=== PATIENT | male | born 1955 | race Caucasian/White ===

== ENCOUNTER 2018-04-05 18:57 | Inpatient (IN) ==
[2018-04-05] MEDS ORDERED: Sod Chloride 0.9% Inj 1,000 ML IV.SIG ONE (19:55)
[2018-04-05] MEDS ORDERED: fentaNYL Citrate Inj 100 MCG/2 ML Ampul IV.PUSH ONE (19:56)
--- NOTE | 2018-04-05 20:00 | ED ---
HPI General Chief Complaint: Trauma Stated Complaint: Transfer Time Seen by Provider: 04/05/18 19:48 Source: patient Limitations: no limitations History of Present Illness HPI narrative: The patient is a 62 year old male who presents to the [facility] emergency department with a history of doing housework at a beach house of a friends prior to arrival when he fell 10 feet onto a concrete slab. The patient reports that this occurred around noon. The patient was transported to another facility for initial evaluation and stabilization. The patient reports that he was up on the front of a front end fructose loader that was raised 10 feet off the ground. The person working the front end fructose loader then backed up while he was still on it 10 feet in the air. He reports that a friend was also up on the front and of the vehicle at the time and both fell to the ground. He reports that his friend landed on top of him. He reports that he has bilateral hand pain and had dislocations of the third and fourth digit of the left hand. The patient had his fingers relocated prior to arrival, however he has no splints in place. The patient had a scalp laceration that has been repaired. The patient was diagnosed with a T2, T6, T8, T9 fracture and an 11th rib fracture prior to arrival. The patient was accepted in transfer to this facility for care under the trauma service and Dr. Whitlock. The patient arrives awake and alert. The patient reports having a headache, bilateral hand pain, and back pain. He denies having any numbness or tingling to the extremities, or weakness of his extremities. Related Data Home Medications Medication Instructions Recorded Confirmed No Known Home Medications 04/05/18 04/05/18 Allergies Allergy/AdvReac Type Severity Reaction Status Date / Time No Known Allergies Allergy Verified 04/05/18 19:27 Review of Systems ROS: all other systems reviewed are negative PMFSH History History Provided By: Patient Medical History Medical History Patient denies medical problems (Acute) Surgical History Surgical History H/O exploratory laparotomy (Acute) Social History Social History Substance History: No History of Abuse Second Hand Smoke Exposure: No Smoking Status: Former smoker How Often Do You Have a Drink Containing Alcohol: 2 to 4 times a month Recent Travel in [facility] within the Last 8 Weeks: No Recent Out of Country Travel within the Last 8 Weeks: No Exam Narrative Exam Narrative: General: The patient is a well-developed well-nourished male in no acute distress. Head and Neck exam: Head is normocephalic, evidence of trauma with hair matted with blood, laceration status post repair along the occipital scalp. Eyes: EOMI, pupils are equal round and reactive to light. Nose: Midline septum with pink mucous membranes Mouth: Dentition unremarkable. Moist mucus membranes. Posterior oropharynx is not erythematous. No tonsillar hypertrophy. Uvula midline. Airway patent. Neck: No palpable lymphadenopathy. No nuchal rigidity. No thyromegaly. No spinous process tenderness to palpation. No step-off or crepitus. No erythema or ecchymosis. Cardiovascular: Regular rate and rhythm without murmurs, gallops, or rubs. No pulse deficit to the extremities on simultaneous auscultation and palpation of his radial artery. Lungs: Clear to auscultation bilaterally. No wheezes, rhonchi, or rales. Abdomen: Soft, without tenderness to palpation in all 4 quadrants of the abdomen. No guarding, rebound, or rigidity. Normal bowel sounds are audible. Negative Gilliland's sign. Extremities: No clubbing, cyanosis, or edema. 2+ pulses in all 4 extremities. The patient reports having bilateral hand pain, however he has full range of motion of his hands without crepitus or deformity. He reports that his left hand, third and fourth digit were dislocated status post relocation in the other emergency department. The patient has bruising noted to bilateral hands. No significant erythema or edema. Back: Patient reports spinous process tenderness to palpation along the thoracic spine in multiple locations, paraspinal muscle tenderness on palpation of the thoracic spine and lumbar spine bilaterally. No step-off or crepitus. No costovertebral angle tenderness to palpation. Neurologic Exam: Cranial nerves 2-12 were intact on exam. Strength is 5/5 in all 4 extremities. No sensory deficits noted. Skin Exam: No rash noted. Intact skin that is warm and dry. Course Consultations Consultation #1: The patient's case including history, pertinent physical examination findings, and laboratory studies were discussed with Dr. Whitlock. It was agreed that the patient would be admitted to the trauma service. He recommended that the patient have a Smith catheter placed to gravity due to his gross hematuria. He recommended that the patient have a repeat CT scan of the chest, abdomen and pelvis with IV contrast at this time. He agreed with a repeat CBC. He recommended that the patient received normal saline 1 L IV fluid bolus. He will come in and evaluate the patient in person in the emergency department shortly. Initial Documented Vital Signs Temperature 97.8 F 04/05/18 19:32 Pulse Rate 74 04/05/18 19:32 Respiratory Rate 18 04/05/18:32 Blood Pressure 126/65 04/05/18:32 Pulse Oximetry 95 04/05/18:32 Last Documented Vital Signs Temperature 99.2 F 04/06/18 00:00 Pulse Rate 66 04/06/18 00:00 Respiratory Rate 20 04/06/18 00:00 Blood Pressure 103/76 04/06/18 00:00 Pulse Oximetry 94 L 04/06/18 00:00 Medical Decision Making MDM Narrative Medical decision making narrative: During the course of the patient's emergency department visit, the patient's history, examination, and differential diagnosis were reviewed with the patient. The patient was placed on a security monitor with oximetry and frequent blood pressure monitoring. The patient had IV access obtained prior to arrival at the other emergency department. A call was placed out to the accepting trauma surgeon. The patient was initially provided fentanyl 50 mcg IV for pain, Zofran 4 mg IV for nausea, normal saline 1 L IV fluid bolus. The patient's diagnostic studies from the other facility were reviewed. Patient had a CT scan of the brain that showed no acute abnormality, CT scan of the C-spine showed no acute abnormality, CT scan of the chest revealed a mildly displaced T2 vertebral body fracture, mild compression deformity of T6 which appeared to be chronic, compression deformity of T8 which was suspected to possibly be acute, and on the patient's CT scan of the abdomen and pelvis at the other facility there was also mention of an acute minimal compression fracture involving T9. Patient incidentally on CT scan of the abdomen and pelvis had a small hiatal hernia with distal esophageal wall thickening. X-ray of the left hand showed no acute bony injuries. Diagnostic studies done at this facility revealed a normal white count at 6.3, hemoglobin 12.2, platelets are 121, neutrophil percent 89.9. PT 12, PTT 28.7, basic metabolic profile is remarkable for sodium of 133, chloride 96, glucose 110, calcium 7.8, urinalysis shows concentrated urine small occult blood 2 urobilinogen, 2 RBCs, culture not indicated. A CT scan of the chest reveals no acute traumatic injury. The patient CT scan of the chest will be reconstituted to look at the T-spine. CT scan of the abdomen and pelvis showed no acute abnormality, healing fracture of the left fifth rib laterally. These films will also be reconstituted to look at the T and L-spine. The patient's results were discussed with the patient, including the plan of care. I explained that further testing and/ or monitoring is indicated based on the patient's history, examination, and/ or laboratory findings. Therefore, I recommended admission for additional evaluation. The patient expressed understanding and was agreeable with this plan. The patient was admitted to the hospital in guarded condition and sent to a bed under the care of trauma service. Medical Screen Exam Complete: Yes Emergency Medical Condition: Yes Differential Diagnosis Differential Diagnosis: Multiple T-spine fractures, versus possible lumbar spine fracture, versus kidney injury status post fall Medical Records Medical records reviewed: Yes I reviewed the patient's medical records. Lab Data Lab results reviewed: Yes I reviewed the patient's lab results. Result diagrams: 04/05/18 20:08 04/05/18 20:08 Lab Results 04/05/18 04/05/18 04/05/18 Range/Units 20:08 20:08 20:08 WBC 6.3 (4.0-11.0) th/mm3 RBC 4.01 L (4.50-5.90) mil/mm3 Hgb 12.2 L (13.0-17.0) gm/dL Hct 35.7 L (39.0-51.0) % MCV 89.0 (80.0-100.0) fL MCH 30.4 (27.0-34.0) pg MCHC 34.2 (32.0-36.0) % RDW 13.4 (11.6-17.2) % Plt Count 121 L (150-450) th/mm3 MPV 6.8 L (7.0-11.0) fL Neut % (Auto) 89.9 H (16.0-70.0) % Lymph % (Auto) 4.1 L (9.0-44.0) % [place] % (Auto) 5.0 (0.0-8.0) % Eos % (Auto) 0.4 (0.0-4.0) % Baso % (Auto) 0.6 (0.0-2.0) % Neut # (Auto) 5.7 (1.8-7.7) th/mm3 Lymph # (Auto) 0.3 L (1.0-4.8) th/mm3 [place] # (Auto) 0.3 (0.0-0.9) th/mm3 Eos # (Auto) 0.0 (0.0-0.4) th/mm3 Baso # (Auto) 0.0 (0.0-0.2) th/mm3 WBC Differential . Differential Comment Auto diff final PT 12.0 H (9.8-11.6) sec INR 1.2 Ratio APTT 28.7 (24.3-30.1) sec Sodium 133 L (136-145) meq/L Potassium 4.2 (3.5-5.1) meq/L Chloride 96 L (98-107) meq/L Carbon Dioxide 28.8 (21.0-32.0) meq/L Anion Gap 8 (5-15) meq/L BUN 12 (7-18) mg/dL Creatinine 0.75 (0.60-1.30) mg/dL Estimated GFR Greater than 89 (>89) mL/min Random Glucose 110 H (74-106) mg/dL Calcium 7.8 L (8.5-10.1) mg/dL Urine Color (Yellw/Straw) Urine Clarity (Clear) Urine pH (5.0-8.5) Ur Specific [place] (1.002-1.035) Urine Protein (Neg-Trace) mg/dL Urine Glucose (UA) (Negative) mg/dL Urine Ketones (Negative) mg/dL Urine Occult Blood (Negative) Urine Nitrate (Negative) Urine Bilirubin (Negative) Urine Urobilinogen (Less than 2) mg/dL Ur Leukocyte Esterase (Negative) Urine RBC (0-3) /hpf Urine WBC (0-5) /hpf Hyaline Casts (0-3) /lpf Urine Mucus (Occasional) /lpf Micro UA Comment Ur Microscopic Review Urine Culture Comments Blood Type Blood Type Recheck Antibody Screen 04/05/18 04/05/18 Range/Units 20:08 21:12 WBC (4.0-11.0) th/mm3 RBC (4.50-5.90) mil/mm3 Hgb (13.0-17.0) gm/dL Hct (39.0-51.0) % MCV (80.0-100.0) fL MCH (27.0-34.0) pg MCHC (32.0-36.0) % RDW (11.6-17.2) % Plt Count (150-450) th/mm3 MPV (7.0-11.0) fL Neut % (Auto) (16.0-70.0) % Lymph % (Auto) (9.0-44.0) % [place] % (Auto) (0.0-8.0) % Eos % (Auto) (0.0-4.0) % Baso % (Auto) (0.0-2.0) % Neut # (Auto) (1.8-7.7) th/mm3 Lymph # (Auto) (1.0-4.8) th/mm3 [place] # (Auto) (0.0-0.9) th/mm3 Eos # (Auto) (0.0-0.4) th/mm3 Baso # (Auto) (0.0-0.2) th/mm3 WBC Differential Differential Comment PT (9.8-11.6) sec INR Ratio APTT (24.3-30.1) sec Sodium (136-145) meq/L Potassium (3.5-5.1) meq/L Chloride (98-107) meq/L Carbon Dioxide (21.0-32.0) meq/L Anion Gap (5-15) meq/L BUN (7-18) mg/dL Creatinine (0.60-1.30) mg/dL Estimated GFR (>89) mL/min Random Glucose (74-106) mg/dL Calcium (8.5-10.1) mg/dL Urine Color Yellow (Yellw/Straw) Urine Clarity Clear (Clear) Urine pH 5.0 (5.0-8.5) Ur Specific [place] Greater than 1.060 H (1.002-1.035) Urine Protein Negative (Neg-Trace) mg/dL Urine Glucose (UA) Negative (Negative) mg/dL Urine Ketones 20 (Negative) mg/dL Urine Occult Blood Small H (Negative) Urine Nitrate Negative (Negative) Urine Bilirubin Negative (Negative) Urine Urobilinogen 2.0 H (Less than 2) mg/dL Ur Leukocyte Esterase Negative (Negative) Urine RBC 2 (0-3) /hpf Urine WBC 1 (0-5) /hpf Hyaline Casts 7 (0-3) /lpf Urine Mucus Few H (Occasional) /lpf Micro UA Comment Culture not ind Ur Microscopic Review Not Reportable Urine Culture Comments Culture not ind Blood Type O Negative Blood Type Recheck Required Antibody Screen Negative Imaging Data Radiologist's impression: Abdomen/Pelvis CT 04/05/18 19:55 CONCLUSION: 1. Negative for acute traumatic injury within the abdomen and pelvis. Chest CT 04/05/18 19:55 CONCLUSION: 1. Negative for acute traumatic injury within the thorax. No effusion, pneumothorax or mediastinal hematoma. Dependent atelectasis in the lungs. Discharge Plan Discharge Disposition Patient Disposition: 30 Still Patient Discharge Details Diagnosis: Fall, Dislocation closed, finger, Thoracic spine fracture Physicians Team ED Provider: Sharda Guerrero Primary Care Provider: UNKNOWN, Attending Provider: Dana Whitlock Other Providers: Gordon Riley Federico Status ED Status: Left Department Discharge Information Discharge Date/Time: 04/06/18 00:14
[2018-04-05 20:22] LABS: Baso % (Auto) 0.6 % (0.0-2.0); Eos % (Auto) 0.4 % (0.0-4.0); Hematocrit 35.7 % (39.0-51.0); Hemoglobin 12.2 gm/dL (13.0-17.0); Lymph # (Auto) 0.3 th/mm3 (1.0-4.8); Lymph % (Auto) 4.1 % (9.0-44.0); Mean Corpuscular HGB Conc 34.2 % (32.0-36.0); Mean Corpuscular Hemoglobin 30.4 pg (27.0-34.0); Mean Platelet Volume 6.8 fL (7.0-11.0); Mono # (Auto) 0.3 th/mm3 (0.0-0.9); Neut # (Auto) 5.7 th/mm3 (1.8-7.7); Neut % (Auto) 89.9 % (16.0-70.0); Platelet Count 121 th/mm3 (150-450); Red Blood Count 4.01 mil/mm3 (4.50-5.90); Red Cell Distribution Width 13.4 % (11.6-17.2); White Blood Count 6.3 th/mm3 (4.0-11.0)
[2018-04-05 20:41] LABS: Activated Partial Thrombo Time 28.7 sec (24.3-30.1); INR 1.2 Ratio
--- NOTE | 2018-04-05 20:46 | CT ---
EXAM DATE: 04/05/2018 8:35 PM EDT AGE/SEX: 62 years / Male INDICATIONS: Trauma; fall. CLINICAL DATA: This is the patient's initial encounter. Patient reports that signs and symptoms have been present for 1 day and indicates a pain score of 10/10. MEDICAL/SURGICAL HISTORY: None. None. RADIATION DOSE: 5.51 CTDI (mGy) ; Combined studies COMPARISON: No prior exams available for comparison. TECHNIQUE: Multiple contiguous axial images were obtained through the chest during bolus infusion of 82 ml Omnipaque 350 (iohexol) nonionic water-soluble contrast as a cumulative dose for multiple exa ms. Images were obtained in suspended respiration using multiple row detector helical technique. U sing automated exposure control and adjustment of the mA and/or kV according to patient size, radiati on dose was kept as low as reasonably achievable to obtain optimal diagnostic quality images. DICOM format image data is available electronically for review and comparison. FINDINGS: There is no pneumothorax. There is some dependent atelectasis in the lungs. There is a healing fractu re of the left fifth rib laterally. There is no hilar, mediastinal or axillary adenopathy. See abdomen CT for findings below the diaphrag m. CONCLUSION: 1. Negative for acute traumatic injury within the thorax. No effusion, pneumothorax or mediastinal h ematoma. Dependent atelectasis in the lungs. Electronically signed by: Jose Francisco Larry MD 04/05/2018 8:45 PM EDT
[2018-04-05 20:47] LABS: Anion Gap 8 meq/L (5-15); Blood Urea Nitrogen 12 mg/dL (7-18); Calcium 7.8 mg/dL (8.5-10.1); Carbon Dioxide 28.8 meq/L (21.0-32.0); Chloride 96 meq/L (98-107); Glomerular Filtration Rate Greater Than 89 mL/min (>89); Glucose,Random 110 mg/dL (74-106); Potassium 4.2 meq/L (3.5-5.1); Sodium 133 meq/L (136-145)
--- NOTE | 2018-04-05 20:49 | CT ---
EXAM DATE: 04/05/2018 8:37 PM EDT AGE/SEX: 62 years / Male INDICATIONS: Trauma; fall. CLINICAL DATA: This is the patient's initial encounter. Patient reports that signs and symptoms have been present for 1 day and indicates a pain score of 10/10. MEDICAL/SURGICAL HISTORY: None. None. ORAL CONTRAST: No oral contrast ingested. RADIATION DOSE: 5.51 CTDI (mGy) ; Combined studies COMPARISON: No prior exams available for comparison. TECHNIQUE: Multiple contiguous axial images were obtained through the abdomen and pelvis following b olus infusion of 82 ml Omnipaque 350 (iohexol) nonionic water-soluble contrast as a cumulative dose for multiple exams. No oral contrast ingested. Using automated exposure control and adjustment of t he mA and/or kV according to patient size, radiation dose was kept as low as reasonably achievable to obtain optimal diagnostic quality images. DICOM format image data is available electronically for r eview and comparison. FINDINGS: Lung bases demonstrate some dependent atelectasis. Mild fatty liver. Spleen, left adrenal, kidneys an d pancreas unremarkable. Multiple surgical clips in the right adrenal region probably from previous r esection. No biliary ductal dilatation. No free fluid. No bowel obstruction. No adenopathy. No acute bony abnormalities. Healing fracture lef t fifth rib laterally. CONCLUSION: 1. Negative for acute traumatic injury within the abdomen and pelvis. Electronically signed by: Jose Francisco Larry MD 04/05/2018 8:48 PM EDT
[2018-04-05 21:29] LABS: Bilirubin,Urine Negative (Negative); Clarity,Urine Clear (Clear); Color,Urine Yellow (Yellw/Straw); Glucose,Urine (UA) Negative (Negative); Hyaline Casts,Urine 7 /lpf (0-3); Leukocyte Esterase,Urine Negative (Negative); Mucus,Urine Few /lpf (Occasional); Nitrite,Urine Negative (Negative)
[2018-04-05] MEDS ORDERED: HYDROmorphone PF Inj 0.5 MG/0.5 ML Syringe IV.PUSH PRN (21:48)
--- NOTE | 2018-04-05 22:17 | P.HPCC ---
History of Present Illness Primary Care Physician: UNKNOWN History of Present Illness: 62-year-old male who fell about 10 foot today. He was worked up in outside institution and transferred for a T2 possible T12 compression fractures. He has also a dislocated third and fourth digits of the left hand which were reduced without any application of a splint. He is hemodynamically normal neurologically intact. Inpatient Certification: I certify that the inpatient services were ordered in accordance with Medicare regulations governing the order. This includes certification that hospital inpatient services are reasonable and necessary and in the case of services not specified as inpatient-only under 42 CFR 419.22(n), that they are appropriately provided as inpatient services in accordance to with the 2-midnight benchmark under 43 CFR 412.3(e) Estimated Total Length of Stay (Days): 2 Plans for Post Hospital Care: Home Review of Systems All other systems reviewed negative except as stated in HPI PMFSH - History History Provided By: Patient - Medical History Medical History: Medical History (Last Reviewed 04/05/18 @ 21:16 by Sharda Guerrero MD) Patient denies medical problems - Surgical History Surgical History: Surgical History (Last Reviewed 04/05/18 @ 21:16 by Sharda Guerrero MD) H/O exploratory laparotomy - Tobacco History Second Hand Smoke Exposure: No Smoking Status: Never smoker - Alcohol History How Often Do You Have a Drink Containing Alcohol: Monthly or less - Substance Use History Substance History: No History of Abuse - Travel History Recent Travel in the [place] Within the Last 8 Weeks: No Recent Travel Out of the Country Within the Last 8 Weeks: No - Immunization History Tetanus Immunization: <5 Years Medications and Allergies Active Medications: Active Medications Chlorhexidine Gluconate (Chlorhexidine 2% Cloth) 3 pack TOPICAL DAILY@0400 CARI Stop: 04/11/18 03:59 Chlorhexidine Gluconate (Chlorhexidine 2% Cloth) 3 pack TOPICAL DAILY@0400 PRN PRN Reason: Extra cloth needed Stop: 04/11/18 03:59 Docusate Sodium (Colace) 100 mg PO BID CARI Hydromorphone HCl (Dilaudid Pf Inj) 0.5 mg IV.PUSH Q3H PRN PRN Reason: PAIN SCALE 4 TO 6 MODERATE Hydromorphone HCl (Dilaudid Pf Inj) 1 mg IV.PUSH Q3H PRN PRN Reason: PAIN SCALE 7 TO 10 SEVERE Lactated Ringer's (Lr 1000 Ml Inj) 1,000 mls @ 100 mls/hr IV.CONT .Q10H CARI Acetaminophen (Ofirmev Inj) 1,000 mg in 100 mls @ 400 mls/hr IV.SIG Q6H CARI Stop: 04/06/18 16:14 Methocarbamol (Robaxin) 750 mg PO Q8HR CARI Ondansetron HCl (Zofran Inj) 4 mg IV.PUSH Q6H PRN PRN Reason: NAUSEA OR VOMITING Allergies Allergy/AdvReac Type Severity Reaction Status Date / Time No Known Allergies Allergy Verified 04/05/18 19:27 Home Medications Medication Instructions Recorded Confirmed Type No Known Home Medications 04/05/18 04/05/18 History Results - Labs CBC & Chem 7: 04/05/18 20:08 04/05/18 20:08 Labs: Short CBC 04/05/18 Range/Units 20:08 WBC 6.3 (4.0-11.0) th/mm3 Hgb 12.2 L (13.0-17.0) gm/dL Hct 35.7 L (39.0-51.0) % Plt Count 121 L (150-450) th/mm3 BMP 04/05/18 20:08 Sodium 133 L Potassium 4.2 Chloride 96 L Carbon Dioxide 28.8 BUN 12 Creatinine 0.75 Calcium 7.8 L Urine 04/05/18 Range/Units 21:12 Urine Color Yellow (Yellw/Straw) Urine Clarity Clear (Clear) Urine pH 5.0 (5.0-8.5) Ur Specific [place] Greater than 1.060 H (1.002-1.035) Urine Protein Negative (Neg-Trace) mg/dL Urine Glucose (UA) Negative (Negative) mg/dL - Imaging Impressions Abdomen/Pelvis CT 04/05/18 19:55 CONCLUSION: 1. Negative for acute traumatic injury within the abdomen and pelvis. Chest CT 04/05/18 19:55 CONCLUSION: 1. Negative for acute traumatic injury within the thorax. No effusion, pneumothorax or mediastinal hematoma. Dependent atelectasis in the lungs. Exam Vital signs: Vital Signs 04/05/18 19:32 04/05/18 19:52 Temperature 97.8 F Pulse Rate 74 85 Respiratory Rate 18 Blood Pressure 126/65 Pulse Oximetry 95 Intake & Output 04/05/18 04/05/18 04/06/18 06:59 18:59 06:59 Intake Total 1000 / 1000 Balance 1000 / 1000 Weight 79.379 kg Intake: IV 1000 / 1000 NS Inj 1,000 ML @ Wide Open IV. 1000 / 1000 SIG BOLUS ONE Rx#:[id number] - Constitutional no acute distress - Routine HEENT Exam Head: Present: normocephalic, atraumatic Eye: Present: EOMI, PERRL ENT: Present: mucous membranes moist, mucous membranes dry, external ear normal - Routine Neck Exam Present: supple, full ROM - Routine Respiratory Exam Present: CTA bilaterally - Routine Cardiovascular Exam Present: RRR - Routine Abdominal Exam Present: soft, normoactive bowel sounds - Routine Extremities Exam Present: full ROM, pulses intact, normal capillary refill - Routine Neurological Exam Present: alert, oriented X3, moving all extremities, normal tone Caprini VTE Risk Assessment Caprini VTE Risk Assessment: Moderate/High Risk (score >= 2) VTE Pharmacological Exception Reason: High risk for bleeding (tr) Caprini Risk Assessment Model: Point Value = 1 Point Value = 2 Point Value = 3 Point Value = 5 Age 41-60 Minor surgery BMI > 25 kg/m2 Swollen legs Varicose veins or History of unexplained or recurrent spontaneous Oral contraceptives or hormone replacement Sepsis (< 1 month) Serious lung disease, including pneumonia (< 1 month) Abnormal pulmonary function Acute myocardial infarction Congestive heart failure (< 1 month) History of inflammatory bowel disease Medical patient at bed rest Age 61-74 Arthroscopic surgery Major open surgery (> 45 min) Laparoscopic surgery (> 45 min) Malignancy Confined to bed (> 72 hours) Immobilizing plaster cast Central venous access Age >= 75 History of VTE Family history of VTE Factor V Leiden Prothrombin [id number] Lupus anticoagulant Anticardiolipin antibodies Elevated serum homocysteine Heparin-induced thrombocytopenia Other congenital or acquired thrombophilia Stroke (< 1 month) Elective arthroplasty Hip, pelvis, or leg fracture Acute spinal cord injury (< 1 month) Prophylaxis Regimen: Total Risk Factor Score Risk Level Prophylaxis Regimen 0-1 Low Early ambulation 2 Moderate Order ONE of the following: *Sequential Compression Device (SCD) *Heparin 5000 units SQ BID 3-4 Higher Order ONE of the following medications: *Heparin 5000 units SQ TID *Enoxaparin/Lovenox 40 mg SQ daily (WT < 150 kg, CrCl > 30 mL/min) *Enoxaparin/Lovenox 30 mg SQ daily (WT < 150 kg, CrCl > 10-29 mL/min) *Enoxaparin/Lovenox 30 mg SQ BID (WT < 150 kg, CrCl > 30 mL/min) AND/OR *Sequential Compression Device (SCD) 5 or more Highest Order ONE of the following medications: *Heparin 5000 units SQ TID (Preferred with Epidurals) *Enoxaparin/Lovenox 40 mg SQ daily (WT < 150 kg, CrCl > 30 mL/min) *Enoxaparin/Lovenox 30 mg SQ daily (WT < 150 kg, CrCl > 10-29 mL/min) *Enoxaparin/Lovenox 30 mg SQ BID (WT < 150 kg, CrCl > 30 mL/min) AND *Sequential Compression Device (SCD) Assessment and Plan - Assessment and Plan Plan: T3,T9 compression fracture 11,12 Rib fx Neurologically intact Admit to trauma floor Neurosurgery consult Pain control neurosurgery consult
[2018-04-05] MEDS: Methocarbamol 500 MG Tablet PO SCH (22:47)
[2018-04-06] MEDS: HYDROmorphone PF Inj 2 MG/ML Vial IV.PUSH PRN ×4 (00:20→22:52)
--- NOTE | 2018-04-06 03:56 | CT ---
EXAM DATE: 04/06/2018 3:42 AM EDT AGE/SEX: 62 years / Male INDICATIONS: Trauma. Fall. CLINICAL DATA: This is the patient's initial encounter. Patient reports that signs and symptoms have been present for 1 day and indicates a pain score of 10/10. MEDICAL/SURGICAL HISTORY: None. None. RADIATION DOSE: 5.51 CTDI (mGy) ; Reconstructed from previous dataset, no dose COMPARISON: No prior exams available for comparison. TECHNIQUE: Contiguous axial images were acquired using a multirow detector CT scanner after intraven ous administration of 82 ml Omnipaque 350 (iohexol) nonionic water-soluble contrast as a cumulative dose for multiple exams. Multiplanar reconstruction in the sagittal and coronal planes was performe d. Using automated exposure control and adjustment of the mA and/or kV according to patient size, ra diation dose was kept as low as reasonably achievable to obtain optimal diagnostic quality images. D ICOM format image data is available electronically for review and comparison. FINDINGS: Mild, acute appearing compression fracture seen of T3. No fracture-associated foraminal or spinal saravanan nosis demonstrated. Very mild acute appearing superior endplate compression fracture seen of the T9 v ertebral body, mostly towards the right. No fracture-associated foraminal or spinal stenosis. Mild, chronic appearing loss of height seen of the T3 and T7 vertebral bodies. There are no subluxations. No acute disc herniation seen. Patient has small set of 13th ribs. There is a mildly displaced acute oblique fracture posteriorly of the left 12th rib. CONCLUSION: 1. Mild acute appearing T3 and T9 compression fractures without associated foraminal or spinal steno sis. 2. Mild, nonacute appearing compression deformity of T7. 3. Acute fracture posteriorly of the left 12th rib. 4. No subluxations. Electronically signed by: Ryan Aguilar MD 04/06/2018 3:55 AM EDT
[2018-04-06] MEDS ORDERED: Chlorhexidine Gluconate 2% 1 Pack (2 Cloths) TOPICAL PRN (04:00)
[2018-04-06] MEDS ORDERED: Chlorhexidine Gluconate 2% 1 Pack (2 Cloths) TOPICAL SCH (04:00)
--- NOTE | 2018-04-06 04:13 | CT ---
EXAM DATE: 04/06/2018 3:56 AM EDT AGE/SEX: 62 years / Male INDICATIONS: Trauma. Fall. CLINICAL DATA: This is the patient's initial encounter. Patient reports that signs and symptoms have been present for 1 day and indicates a pain score of 10/10. MEDICAL/SURGICAL HISTORY: None. None. RADIATION DOSE: 5.52 CTDI (mGy) ; Reconstructed from previous dataset, no dose COMPARISON: No prior exams available for comparison. TECHNIQUE: Contiguous axial images were acquired with a multirow detector CT scanner after intraveno us administration of 82 ml Omnipaque 350 (iohexol) nonionic water-soluble contrast as a cumulative d ose for multiple exams. Multiplanar reconstructions in the sagittal and coronal plane were also perf ormed. Using automated exposure control and adjustment of the mA and/or kV according to patient size, radiation dose was kept as low as reasonably achievable to obtain optimal diagnostic quality images. DICOM format image data is available electronically for review and comparison. FINDINGS: Patient has 13 thoracic vertebra. There is transitional lumbosacral anatomy with partial sacralizatio n of L5 on the right. Mild and focal can cavity involves the superior endplate towards the left of the L3 vertebral body, s eries 309 image 14. No displaced or retropulsed fragments. No associated foraminal or spinal stenosis . Mild disc space narrowing and small, broad posterior disc protrusions and mild bilateral facet osteoa rthritis are seen at L2/L3, L3/L4 and L4/L5. CONCLUSION: 1. Very mild and focal superior endplate compression fracture of L3, age indeterminate. Otherwise in tact lumbar spine. No acute stenosis demonstrated. 2. Multilevel degenerative changes as above. 3. Variant anatomy of the spine. There are 13 thoracic vertebra and partially sacralized L5. Electronically signed by: Ryan Aguilar MD 04/06/2018 4:12 AM EDT
[2018-04-06 06:02] LABS: Eos # (Auto) 0.1 th/mm3 (0.0-0.4); Hematocrit 32.8 % (39.0-51.0); Hemoglobin 11.5 gm/dL (13.0-17.0); Lymph # (Auto) 0.5 th/mm3 (1.0-4.8); Mean Corpuscular HGB Conc 35.1 % (32.0-36.0); Mean Corpuscular Hemoglobin 31.6 pg (27.0-34.0); Mean Corpuscular Volume 89.8 fL (80.0-100.0); Mean Platelet Volume 7.2 fL (7.0-11.0); Mono # (Auto) 0.4 th/mm3 (0.0-0.9); Mono % (Auto) 8.6 % (0.0-8.0); Neut # (Auto) 3.8 th/mm3 (1.8-7.7); Neut % (Auto) 78.4 % (16.0-70.0); Platelet Count 106 th/mm3 (150-450); Red Blood Count 3.65 mil/mm3 (4.50-5.90); Red Cell Distribution Width 13.4 % (11.6-17.2); White Blood Count 4.8 th/mm3 (4.0-11.0)
[2018-04-06] MEDS: Methocarbamol 500 MG Tablet PO SCH ×2 (06:18→13:03)
[2018-04-06 06:33] LABS: Anion Gap 9 meq/L (5-15); Blood Urea Nitrogen 10 mg/dL (7-18); Calcium 7.7 mg/dL (8.5-10.1); Carbon Dioxide 27.1 meq/L (21.0-32.0); Chloride 97 meq/L (98-107); Glomerular Filtration Rate Greater Than 89 mL/min (>89); Glucose,Random 99 mg/dL (74-106); Sodium 133 meq/L (136-145)
[2018-04-06] MEDS ORDERED: Docusate Sodium 100 MG Capsule PO SCH (09:00)
[2018-04-06] MEDS: Senna/Docusate Sodium 8.6/50 MG Tablet PO SCH ×2 (09:04→22:55)
[2018-04-06] MEDS: Famotidine 20 MG Tablet PO SCH ×2 (09:04→22:55)
[2018-04-06] MEDS: Lidocaine 5% Patch T-DERMAL SCH (10:07)
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
[2018-04-06] MEDS: Ketorolac Inj 30 MG/ML (IVP) Vial IV.PUSH SCH ×2 (13:06→18:41)
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
--- NOTE | 2018-04-06 15:12 | P.PN ---
Subjective Interval history: Painful, reporting back pain. Denies paresthesias. Awaiting neurosurgery evaluation Physical Exam Vital signs: Vital Signs 04/05/18 19:32 04/05/18 19:52 04/05/18 23:01 Temperature 97.8 F Pulse Rate 74 85 Respiratory Rate 18 16 Blood Pressure 126/65 Pulse Oximetry 95 04/06/18 00:00 04/06/18 03:53 04/06/18 07:33 Temperature 99.2 F 99.0 F 97.6 F Pulse Rate 66 76 59 L Respiratory Rate 20 18 20 Blood Pressure 103/76 100/61 110/59 L Pulse Oximetry 94 L 93 L 95 04/06/18 11:30 04/06/18 11:52 04/06/18 12:31 Temperature 97.8 F Pulse Rate 63 Respiratory Rate 16 20 16 Blood Pressure 132/85 Pulse Oximetry 97 Intake & Output 04/05/18 04/06/18 04/06/18 18:59 06:59 18:59 Intake Total 1200 / 1200 1209 / 1209 Output Total 525 / 525 Balance 1200 / 1200 684 / 684 Weight 79.379 kg Intake: IV 1200 / 1200 1209 / 1209 LR 1000 mL Inj 1,000 ML @ 100 1109 / 1109 mls/hr IV.CONT .Q10H [facility] Rx#: [id number] Ofirmev Inj 1,000 mg In 100 ml 200 / 200 100 / 100 @ 400 mls/hr IV.SIG Q6H CARI Rx# :[id number] NS Inj 1,000 ML @ Wide Open IV. 1000 / 1000 SIG BOLUS ONE Rx#:[id number] Output: Urine 525 / 525 Other: # Voids 2 Weight On Admission 79.379 kg Narrative: GENERAL: 62-year-old well-nourished, well developed male lying in bed no acute distress. SKIN: Warm and dry. Right forearm abrasion noted open to air. HEAD: Normocephalic. EYES: Pupils equal and round. No scleral icterus. CARDIOVASCULAR: Regular rate and rhythm. RESPIRATORY: No accessory muscle use. Lungs clear to auscultation bilaterally. GASTROINTESTINAL: Abdomen soft, non-tender, nondistended. + BS. MUSCULOSKELETAL: Extremities without cyanosis, or edema. MAEW, + perfused BUE and BLE 4/5 strength NEUROLOGICAL: Awake and alert. Normal speech. Results - Labs CBC & Chem 7: 04/06/18 04:50 04/06/18 04:50 Laboratory Results - last 24 hr 04/05/18 04/05/18 04/05/18 20:08 20:08 20:08 WBC 6.3 RBC 4.01 L Hgb 12.2 L Hct 35.7 L MCV 89.0 MCH 30.4 MCHC 34.2 RDW 13.4 Plt Count 121 L MPV 6.8 L Neut % (Auto) 89.9 H Lymph % (Auto) 4.1 L [place] % (Auto) 5.0 Eos % (Auto) 0.4 Baso % (Auto) 0.6 Neut # (Auto) 5.7 Lymph # (Auto) 0.3 L [place] # (Auto) 0.3 Eos # (Auto) 0.0 Baso # (Auto) 0.0 WBC Differential . Differential Comment Auto diff final PT 12.0 H INR 1.2 APTT 28.7 Sodium 133 L Potassium 4.2 Chloride 96 L Carbon Dioxide 28.8 Anion Gap 8 BUN 12 Creatinine 0.75 Estimated GFR Greater than 89 Random Glucose 110 H Calcium 7.8 L Urine Color Urine Clarity Urine pH Ur Specific [place] Urine Protein Urine Glucose (UA) Urine Ketones Urine Occult Blood Urine Nitrate Urine Bilirubin Urine Urobilinogen Ur Leukocyte Esterase Urine RBC Urine WBC Hyaline Casts Urine Mucus Micro UA Comment Ur Microscopic Review Urine Culture Comments Nasal Screen MRSA (PCR) Blood Type Blood Type Recheck Antibody Screen 04/05/18 04/05/18 04/06/18 20:08 21:12 04:38 WBC RBC Hgb Hct MCV MCH MCHC RDW Plt Count MPV Neut % (Auto) Lymph % (Auto) [place] % (Auto) Eos % (Auto) Baso % (Auto) Neut # (Auto) Lymph # (Auto) [place] # (Auto) Eos # (Auto) Baso # (Auto) WBC Differential Differential Comment PT INR APTT Sodium Potassium Chloride Carbon Dioxide Anion Gap BUN Creatinine Estimated GFR Random Glucose Calcium Urine Color Yellow Urine Clarity Clear Urine pH 5.0 Ur Specific [place] Greater than 1.060 H Urine Protein Negative Urine Glucose (UA) Negative Urine Ketones 20 Urine Occult Blood Small H Urine Nitrate Negative Urine Bilirubin Negative Urine Urobilinogen 2.0 H Ur Leukocyte Esterase Negative Urine RBC 2 Urine WBC 1 Hyaline Casts 7 Urine Mucus Few H Micro UA Comment Culture not ind Ur Microscopic Review Not Reportable Urine Culture Comments Culture not ind Nasal Screen MRSA (PCR) Mrsa detected Blood Type O Negative Blood Type Recheck Required Antibody Screen Negative 04/06/18 04/06/18 04:50 04:50 WBC 4.8 RBC 3.65 L Hgb 11.5 L Hct 32.8 L MCV 89.8 MCH 31.6 MCHC 35.1 RDW 13.4 Plt Count 106 L MPV 7.2 Neut % (Auto) 78.4 H Lymph % (Auto) 10.0 [place] % (Auto) 8.6 H Eos % (Auto) 2.0 Baso % (Auto) 1.0 Neut # (Auto) 3.8 Lymph # (Auto) 0.5 L [place] # (Auto) 0.4 Eos # (Auto) 0.1 Baso # (Auto) 0.0 WBC Differential . Differential Comment Auto diff final PT INR APTT Sodium 133 L Potassium 4.0 Chloride 97 L Carbon Dioxide 27.1 Anion Gap 9 BUN 10 Creatinine 0.62 Estimated GFR Greater than 89 Random Glucose 99 Calcium 7.7 L Urine Color Urine Clarity Urine pH Ur Specific [place] Urine Protein Urine Glucose (UA) Urine Ketones Urine Occult Blood Urine Nitrate Urine Bilirubin Urine Urobilinogen Ur Leukocyte Esterase Urine RBC Urine WBC Hyaline Casts Urine Mucus Micro UA Comment Ur Microscopic Review Urine Culture Comments Nasal Screen MRSA (PCR) Blood Type Blood Type Recheck Antibody Screen - Imaging Impressions Abdomen/Pelvis CT 04/05/18 19:55 CONCLUSION: 1. Negative for acute traumatic injury within the abdomen and pelvis. Chest CT 04/05/18 19:55 CONCLUSION: 1. Negative for acute traumatic injury within the thorax. No effusion, pneumothorax or mediastinal hematoma. Dependent atelectasis in the lungs. Lumbar Spine CT 04/06/18 03:16 CONCLUSION: 1. Very mild and focal superior endplate compression fracture of L3, age indeterminate. Otherwise intact lumbar spine. No acute stenosis demonstrated. 2. Multilevel degenerative changes as above. 3. Variant anatomy of the spine. There are 13 thoracic vertebra and partially sacralized L5. Thoracic Spine CT 04/06/18 03:16 CONCLUSION: 1. Mild acute appearing T3 and T9 compression fractures without associated foraminal or spinal stenosis. 2. Mild, nonacute appearing compression deformity of T7. 3. Acute fracture posteriorly of the left 12th rib. 4. No subluxations. Lumbar Spine MRI 04/06/18 10:05 CONCLUSION: 1. Subtle increased signal in the L3 vertebral body vertebral body and probably represents a subtle compression. 2. Minimal annular tear at L2-3. Thoracic Spine MRI 04/06/18 10:05 CONCLUSION: 1. Subtle acute compressions of T3 and T9 without cord impingement. 2. Old compression of T7. 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 Trauma transfer. INJURIES: Occipital scalp lac T3, T9 compression fxs L3 endplate compression fx LEFT rib fx (12) ?Aspiration LEFT 3rd and 4th digit dislocation Occipital scalp lac Supportive care Wound care: Cleanse wound daily with soap and water. Leave open to air T3, T9 compression fxs, L3 endplate compression fx Neurosurgery consulted Await plan of care Bed rest until cleared by neurosurgery Pain control-added Toradol for better pain control Bowel regimen LEFT rib fx, ?Aspiration Supportive care Pulmonary toileting CXR in a.m. Pain control Bowel regimen OOB when cleared by neurosurgery LEFT 3rd and 4th digit dislocation 04/05: LEFT 3rd and 4th digit reduction (at outside facility) Negative for fracture Pain control Plan of care discussed with patient at bedside. Collaborating Trauma surgeon agrees with plan. Case management consulted to assist with discharge planning. - Attending Attestation stable overall,c/o back pain,neuro intact-increase pain control,NS input
--- NOTE | 2018-04-06 18:50 | MB ---
cc: Gordon Riley MD DATE: 04/06/2018 REASON FOR CONSULTATION: Left hand finger dislocation. HISTORY OF PRESENT ILLNESS: The patient is a 62-year-old right-hand dominant male brought in to [facility] after transfer from the ER following a fall yesterday. The patient states yesterday around noon, he fell from a height onto a concrete slab about 10-12 feet, resulting in injury to the left hand and the back. The patient was seen at a [facility] and was found to have dislocations of the left ring and middle fingers. He had closed reduction of the dislocation. He was transferred to [facility] for his spine and rib fractures. The patient states he has no pain symptoms involving the left hand at the present time. He also states he is able to move his fingers better. Complains of bruising involving both hands. Denies any open wounds. Still complains of back pain and is in a brace. Denies any tingling or numbness of the hands or fingers. PAST MEDICAL AND SURGICAL HISTORY: Reviewed and significant for an exploratory laparotomy. PHYSICAL EXAMINATION: The patient is alert and oriented x 3. Examination of the left hand reveals mild ecchymosis over the dorsal aspect of the fingers. No gross deformity of the fingers is noted. No tenderness noted over the finger joints. The patient is able to make a full fist. He has full extension of the fingers. No evidence of joint subluxation or dislocation of the proximal interphalangeal joints noted. ASSESSMENT: A 62-year-old male with dislocation of the proximal interphalangeal joints, left ring and middle fingers, status post reduction at outside facility. PLAN: The patient appears to have well-reduced PIP joints of the ring and middle fingers. He has full range of motion with no evidence of subluxation or dislocation. The PIP joints appear stable, both in flexion and extension. This can be managed with dale straps between the middle and the ring fingers. The patient has been advised to continue with range of motion exercises. He is also advised to avoid hyperextension of the fingers. No active surgical management needed. Hand surgery will follow up on a p.r.n. basis. Gordon Riley MD SE/charmaine , 05:07 PM , 05:14 PM
[2018-04-07] MEDS: Methocarbamol 500 MG Tablet PO SCH ×4 (02:44→21:25)
[2018-04-07] MEDS: HYDROmorphone PF Inj 2 MG/ML Vial IV.PUSH PRN ×4 (02:46→20:12)
[2018-04-07] MEDS: Ketorolac Inj 30 MG/ML (IVP) Vial IV.PUSH SCH ×4 (02:47→18:50)
[2018-04-07 04:23] LABS: Baso % (Auto) 0.6 % (0.0-2.0); Eos # (Auto) 0.1 th/mm3 (0.0-0.4); Eos % (Auto) 1.7 % (0.0-4.0); Hematocrit 32.7 % (39.0-51.0); Hemoglobin 11.8 gm/dL (13.0-17.0); Lymph # (Auto) 0.8 th/mm3 (1.0-4.8); Lymph % (Auto) 12.4 % (9.0-44.0); Mean Corpuscular Hemoglobin 31.5 pg (27.0-34.0); Mean Corpuscular Volume 87.3 fL (80.0-100.0); Mono # (Auto) 0.7 th/mm3 (0.0-0.9); Mono % (Auto) 10.3 % (0.0-8.0); Platelet Count 114 th/mm3 (150-450); Red Blood Count 3.74 mil/mm3 (4.50-5.90); Red Cell Distribution Width 13.4 % (11.6-17.2); White Blood Count 6.6 th/mm3 (4.0-11.0)
[2018-04-07 04:53] LABS: Anion Gap 7 meq/L (5-15); Blood Urea Nitrogen 14 mg/dL (7-18); Calcium 7.9 mg/dL (8.5-10.1); Carbon Dioxide 30.2 meq/L (21.0-32.0); Chloride 98 meq/L (98-107); Glomerular Filtration Rate Greater Than 89 mL/min (>89); Glucose,Random 125 mg/dL (74-106); Sodium 135 meq/L (136-145)
--- NOTE | 2018-04-07 06:09 | XR ---
EXAM DATE: 04/07/2018 5:50 AM EDT AGE/SEX: 62 years / Male INDICATIONS: Shortness of breath and chest pain. CLINICAL DATA: This is the patient's subsequent encounter. Patient reports that signs and symptoms h ave been present for 3 days and indicates a pain score of 8/10. MEDICAL/SURGICAL HISTORY: None. None. COMPARISON: [facility] – [place], CHEST SINGLE AP, 06/15/2012. . FINDINGS: There is mild right base atelectasis. Lungs otherwise appear clear. Some sort of brace obscures the c entral right chest. A nonacute fractures again seen of the mid shaft of the left clavicle with appare nt nonunion. Heart size stable, within normal limits. CONCLUSION: Mild right base atelectasis. Lungs otherwise clear. Electronically signed by: Ryan Aguilar MD 04/07/2018 6:08 AM EDT
[2018-04-07 07:32] LABS: Eosinophils 1 % (0-4); Lymphocytes 8 % (9-44); Monocytes 9 % (0-8)
[2018-04-07 07:33] LABS: Platelet Estimate Normal (Normal); Platelet Morphology Normal (Normal); RBC Morphology Normal (Normal)
[2018-04-07] MEDS: Lidocaine 5% Patch T-DERMAL SCH (09:35)
[2018-04-07] MEDS: Senna/Docusate Sodium 8.6/50 MG Tablet PO SCH ×2 (09:35→20:13)
[2018-04-07] MEDS: Famotidine 20 MG Tablet PO SCH ×2 (09:36→20:12)
[2018-04-07] MEDS: Enoxaparin Inj 30 MG/0.3 ML Syringe SQ SCH ×2 (14:08→20:12)
--- NOTE | 2018-04-07 15:30 | P.PN ---
Subjective Interval history: Reports increased back pain with mobility States he feels he is unable to get OOB d/t pain PT performed ROM today with patient Physical Exam Vital signs: Vital Signs 04/06/18 16:00 04/06/18 16:06 04/06/18 16:25 Temperature 97.8 F Pulse Rate 64 Respiratory Rate 16 14 16 Blood Pressure 137/82 Pulse Oximetry 96 04/06/18 20:00 04/07/18 00:00 04/07/18 03:13 Temperature 98.1 F 98.1 F 98.7 F Pulse Rate 69 60 59 L Respiratory Rate 18 18 18 Blood Pressure 123/74 110/60 122/60 Pulse Oximetry 96 98 95 04/07/18 08:57 04/07/18 14:09 Temperature 97.6 F 97.8 F Pulse Rate 59 L 69 Respiratory Rate 16 16 Blood Pressure 120/74 129/69 Pulse Oximetry 97 94 L Intake & Output 04/06/18 04/07/18 04/07/18 18:59 06:59 18:59 Intake Total 1309 / 1309 220 / 220 Output Total 775 / 775 Balance 534 / 534 220 / 220 Intake: IV 1309 / 1309 LR 1000 mL Inj 1,000 ML @ 100 1109 / 1109 mls/hr IV.CONT .Q10H CARI Rx#: [id number] Ofirmev Inj 1,000 mg In 100 ml 200 / 200 @ 400 mls/hr IV.SIG Q6H CARI Rx# :[id number] Oral 220 / 220 Output: Urine 775 / 775 Other: # Voids 1 Date of Last Bowel Movement 04/07/18 Narrative: GENERAL: 62-year-old well-nourished, well developed male lying in bed no acute distress. SKIN: Warm and dry. 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 CARDIOVASCULAR: Regular rate and rhythm. RESPIRATORY: No accessory muscle use. Lungs clear to auscultation bilaterally. GASTROINTESTINAL: Abdomen soft, non-tender, nondistended. + BS. MUSCULOSKELETAL: Extremities without cyanosis, or edema. MAEW, + perfused BUE and BLE 4/5 strength NEUROLOGICAL: Awake and alert. Normal speech. Results - Labs CBC & Chem 7: 04/07/18 04:11 04/07/18 04:11 Laboratory Results - last 24 hr 04/07/18 04/07/18 04:11 04:11 WBC 6.6 RBC 3.74 L Hgb 11.8 L Hct 32.7 L MCV 87.3 MCH 31.5 MCHC 36.0 RDW 13.4 Plt Count 114 L MPV 7.0 Prelim Diff (Auto) Slide review pending Neut % (Auto) 75.0 H Lymph % (Auto) 12.4 [place] % (Auto) 10.3 H Eos % (Auto) 1.7 Baso % (Auto) 0.6 Neut # (Auto) 5.0 Lymph # (Auto) 0.8 L [place] # (Auto) 0.7 Eos # (Auto) 0.1 Baso # (Auto) 0.0 WBC Differential Manual diff final Seg Neuts % (Manual) 56 Band Neuts % (Manual) 25 H Lymphocytes % (Manual) 8 L Monocytes % (Manual) 9 H Eosinophils % (Manual) 1 Basophils % (Manual) 1 Abs Neuts (Manual) 5.3 Differential Comment . Platelet Estimate Normal Platelet Morphology Normal RBC Morphology Normal Sodium 135 L Potassium 4.0 Chloride 98 Carbon Dioxide 30.2 Anion Gap 7 BUN 14 Creatinine 0.78 Estimated GFR Greater than 89 Random Glucose 125 H Calcium 7.9 L - Imaging Impressions Chest X-Ray 04/07/18 00:00 CONCLUSION: Mild right base atelectasis. Lungs otherwise clear. 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 Trauma transfer. INJURIES: Occipital scalp lac T3, T9 compression fxs L3 endplate compression fx LEFT rib fx (12) ?Aspiration LEFT 3rd and 4th digit dislocation Occipital scalp lac Supportive care Wound care: Cleanse wound daily with soap and water. Leave open to air T3, T9 compression fxs, L3 endplate compression fx Neurosurgery consulted Non-op TLSO brace when OOB OOB- PT and OT ordered Pain control-increased Percocet dose and encouraged PO pain med use for better pain control Bowel regimen LEFT rib fx, ?Aspiration Supportive care Pulmonary toileting CXR today shows mild atelectasis at right lung base Pain control Bowel regimen OOB PT and OT ordered LEFT 3rd and 4th digit dislocation 04/05: LEFT 3rd and 4th digit reduction (at outside facility) Negative for fracture Pain control Plan of care discussed with patient and RN at bedside. D/W Dr Marin. Collaborating Trauma surgeon agrees with plan. Case management consulted to assist with discharge planning. [facility] following for possible placement at [facility]. - Attending Attestation complaining of of back pain, will need to start ambulating with physical therapy ,we will adjust his pain medication
[2018-04-07] MEDS: oxyCODONE/Acetaminophen 10/325 Tablet PO PRN ×2 (15:36→22:42)
--- NOTE | 2018-04-07 16:55 | P.PNNS ---
Subjective Interval history: still c/o back pain worse with movement. MRI's T, L spine completed. Physical Exam Vital signs: Vital Signs 04/06/18 20:00 04/07/18 00:00 04/07/18 03:13 Temperature 98.1 F 98.1 F 98.7 F Pulse Rate 69 60 59 L Respiratory Rate 18 18 18 Blood Pressure 123/74 110/60 122/60 Pulse Oximetry 96 98 95 04/07/18 08:57 04/07/18 14:09 Temperature 97.6 F 97.8 F Pulse Rate 59 L 69 Respiratory Rate 16 16 Blood Pressure 120/74 129/69 Pulse Oximetry 97 94 L Intake & Output 04/06/18 04/07/18 04/07/18 18:59 06:59 18:59 Intake Total 1309 / 1309 220 / 220 Output Total 775 / 775 Balance 534 / 534 220 / 220 Intake: IV 1309 / 1309 LR 1000 mL Inj 1,000 ML @ 100 1109 / 1109 mls/hr IV.CONT .Q10H CARI Rx#: [id number] Ofirmev Inj 1,000 mg In 100 ml 200 / 200 @ 400 mls/hr IV.SIG Q6H CARI Rx# :[id number] Oral 220 / 220 Output: Urine 775 / 775 Other: # Voids 1 Date of Last Bowel Movement 04/07/18 Narrative: GENERAL: laying in bed NAD SKIN: Warm and dry. HEAD: Atraumatic. Normocephalic. EYES: Pupils equal and round. No scleral icterus. No injection or drainage. ENT: No nasal bleeding or discharge. Mucous membranes pink and moist. NECK: Trachea midline. No JVD. CARDIOVASCULAR: Regular rate and rhythm. RESPIRATORY: No accessory muscle use. Clear to auscultation. Breath sounds equal bilaterally. MUSCULOSKELETAL: Extremities without clubbing, cyanosis, or edema. No obvious deformities. NEUROLOGICAL: Awake and alert. No obvious cranial nerve deficits. Normal speech. 4/5 b/l iliopsoas, quads, hamstrings with pain, 5/5 TA, gastrocnemius. Plantars flexors b/l Assessment and Plan - Plan 62 y/o male 10 foot fall, multiple mild thoracic and lumbar compression fractures - T3, T9 and L3 Lumbar Spine CT 04/06/18 03:16 CONCLUSION: 1. Very mild and focal superior endplate compression fracture of L3, age indeterminate. Otherwise intact lumbar spine. No acute stenosis demonstrated. 2. Multilevel degenerative changes as above. 3. Variant anatomy of the spine. There are 13 thoracic vertebra and partially sacralized L5. Thoracic Spine CT 04/06/18 03:16 CONCLUSION: 1. Mild acute appearing T3 and T9 compression fractures without associated foraminal or spinal stenosis. 2. Mild, nonacute appearing compression deformity of T7. 3. Acute fracture posteriorly of the left 12th rib. 4. No subluxations. Lumbar Spine MRI 04/06/18 10:05 CONCLUSION: 1. Subtle increased signal in the L3 vertebral body vertebral body and probably represents a subtle compression. 2. Minimal annular tear at L2-3. Thoracic Spine MRI 04/06/18 10:05 CONCLUSION: 1. Subtle acute compressions of T3 and T9 without cord impingement. 2. Old compression of T7. Plan cont neuro checks in a serial fashion reviewed MRI T and L spine, he has multiple mild thoracic and lumbar fractures cont nonoperative treatment for now with thoracolumbar bracing when out of bed recommend f/u XR T, L spine in 3 weeks
[2018-04-08] MEDS: Ketorolac Inj 30 MG/ML (IVP) Vial IV.PUSH SCH ×4 (00:27→18:19)
[2018-04-08] MEDS: HYDROmorphone PF Inj 2 MG/ML Vial IV.PUSH PRN (03:03)
[2018-04-08] MEDS: Methocarbamol 500 MG Tablet PO SCH ×3 (06:04→21:47)
[2018-04-08] MEDS ORDERED: Sodium Chloride 0.9% 2 ML Flush PRN IV.FLUSH (07:22)
[2018-04-08] MEDS: Senna/Docusate Sodium 8.6/50 MG Tablet PO SCH ×2 (09:57→21:47)
[2018-04-08] MEDS: oxyCODONE/Acetaminophen 10/325 Tablet PO PRN ×3 (09:57→20:28)
[2018-04-08] MEDS: Famotidine 20 MG Tablet PO SCH ×2 (09:57→20:28)
[2018-04-08] MEDS: Lidocaine 5% Patch T-DERMAL SCH (09:59)
[2018-04-08] MEDS: Enoxaparin Inj 30 MG/0.3 ML Syringe SQ SCH ×2 (09:59→20:29)
[2018-04-08] MEDS: Sodium Chloride 0.9% 2 ML Flush BID IV.FLUSH SCH ×2 (10:00→20:29)
--- NOTE | 2018-04-08 14:57 | P.PN ---
Subjective Interval history: Has not been OOB yet, awaiting PT eval Pain better today RN reports patient's bed mobility is improved today Physical Exam Vital signs: Vital Signs 04/07/18 16:50 04/07/18 20:00 04/08/18 00:00 Temperature 97.9 F 98.0 F 97.6 F Pulse Rate 69 94 H 68 Respiratory Rate 16 16 20 Blood Pressure 119/76 127/72 122/68 Pulse Oximetry 96 95 64 L 04/08/18 04:00 04/08/18 08:00 04/08/18 12:00 Temperature 98.4 F 97.9 F 97.4 F L Pulse Rate 75 56 L 66 Respiratory Rate 17 18 18 Blood Pressure 123/78 134/75 128/77 Pulse Oximetry 94 L 97 97 Intake & Output 04/07/18 04/08/18 04/08/18 18:59 06:59 18:59 Weight 79.379 kg Other: # Voids 1 Date of Last Bowel Movement 04/07/18 04/07/18 04/08/18 Narrative: GENERAL: 62-year-old well-nourished, well developed male lying in bed no acute distress. SKIN: Warm and dry. 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 CARDIOVASCULAR: Regular rate and rhythm. RESPIRATORY: No accessory muscle use. Lungs clear to auscultation bilaterally. GASTROINTESTINAL: Abdomen soft, non-tender, nondistended. + BS. MUSCULOSKELETAL: Extremities without cyanosis, or edema. MAEW, + perfused BUE and BLE 4/5 strength NEUROLOGICAL: Awake and alert. Normal speech. 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 Trauma transfer. INJURIES: Occipital scalp lac T3, T9 compression fxs L3 endplate compression fx LEFT rib fx (12) ?Aspiration LEFT 3rd and 4th digit dislocation Occipital scalp lac Supportive care Wound care: Cleanse wound daily with soap and water. Leave open to air T3, T9 compression fxs, L3 endplate compression fx Neurosurgery consulted Non-op TLSO brace when OOB OOB- PT and OT ordered. PT increased to 7 days/wk Pain control Bowel regimen LEFT rib fx, ?Aspiration Supportive care Pulmonary toileting CXR shows mild atelectasis at right lung base Pain control Bowel regimen OOB PT and OT ordered LEFT 3rd and 4th digit dislocation 04/05: LEFT 3rd and 4th digit reduction (at outside facility) Negative for fracture Pain control Plan of care discussed with patient and RN at bedside. Collaborating Trauma surgeon agrees with plan. Case management consulted to assist with discharge planning. [facility] vs home with outpatient PT depending on progress OOB.
[2018-04-08] MEDS: Morphine Inj 4 MG/ML Vial IV.PUSH PRN (16:41)
--- NOTE | 2018-04-08 17:10 | P.PNNS ---
Subjective Interval history: seen this am during rounds, stable back pain, controlled on pain medication, waiting on his next dose Physical Exam Vital signs: Vital Signs 04/07/18 20:00 04/08/18 00:00 04/08/18 04:00 Temperature 98.0 F 97.6 F 98.4 F Pulse Rate 94 H 68 75 Respiratory Rate 16 20 17 Blood Pressure 127/72 122/68 123/78 Pulse Oximetry 95 64 L 94 L 04/08/18 08:00 04/08/18 12:00 04/08/18 16:00 Temperature 97.9 F 97.4 F L 97.8 F Pulse Rate 56 L 66 60 Respiratory Rate 18 18 18 Blood Pressure 134/75 128/77 129/71 Pulse Oximetry 97 97 97 Intake & Output 04/07/18 04/08/18 04/08/18 18:59 06:59 18:59 Weight 79.379 kg Other: # Voids 1 Date of Last Bowel Movement 04/07/18 04/07/18 04/08/18 Narrative: GENERAL: laying in bed NAD SKIN: Warm and dry. HEAD: Atraumatic. Normocephalic. EYES: Pupils equal and round. No scleral icterus. No injection or drainage. ENT: No nasal bleeding or discharge. Mucous membranes pink and moist. NECK: Trachea midline. No JVD. CARDIOVASCULAR: Regular rate and rhythm. RESPIRATORY: No accessory muscle use. Clear to auscultation. Breath sounds equal bilaterally. MUSCULOSKELETAL: Extremities without clubbing, cyanosis, or edema. No obvious deformities. NEUROLOGICAL: Awake and alert. No obvious cranial nerve deficits. 4/5 b/l iliopsoas, quads, hamstrings with pain, 5/5 TA, gastrocnemius. Assessment and Plan - Plan 62 y/o male 10 foot fall, multiple mild thoracic and lumbar compression fractures - T3, T9 and L3 Lumbar Spine CT 04/06/18 03:16 CONCLUSION: 1. Very mild and focal superior endplate compression fracture of L3, age indeterminate. Otherwise intact lumbar spine. No acute stenosis demonstrated. 2. Multilevel degenerative changes as above. 3. Variant anatomy of the spine. There are 13 thoracic vertebra and partially sacralized L5. Thoracic Spine CT 04/06/18 03:16 CONCLUSION: 1. Mild acute appearing T3 and T9 compression fractures without associated foraminal or spinal stenosis. 2. Mild, nonacute appearing compression deformity of T7. 3. Acute fracture posteriorly of the left 12th rib. 4. No subluxations. Lumbar Spine MRI 04/06/18 10:05 CONCLUSION: 1. Subtle increased signal in the L3 vertebral body vertebral body and probably represents a subtle compression. 2. Minimal annular tear at L2-3. Thoracic Spine MRI 04/06/18 10:05 CONCLUSION: 1. Subtle acute compressions of T3 and T9 without cord impingement. 2. Old compression of T7. Plan cont neuro checks in a serial fashion reviewed MRI T and L spine, he has multiple mild thoracic and lumbar fractures cont nonoperative treatment for now with thoracolumbar bracing when out of bed recommend f/u XR T, L spine in 3 weeks, f/u Dr. Marin office
[2018-04-09] MEDS: Ketorolac Inj 30 MG/ML (IVP) Vial IV.PUSH SCH ×4 (00:30→17:35)
[2018-04-09] MEDS: Morphine Inj 4 MG/ML Vial IV.PUSH PRN (03:32)
--- NOTE | 2018-04-09 06:36 | XR ---
EXAM DATE: 04/09/2018 6:32 AM EDT AGE/SEX: 62 years / Male INDICATIONS: Pain due to falling 10 feet. CLINICAL DATA: This is the patient's initial encounter. Patient reports that signs and symptoms have been present for 4 - 6 days and indicates a pain score of 7/10. MEDICAL/SURGICAL HISTORY: None. None. COMPARISON: No prior exams available for comparison. FINDINGS: A minimally displaced transverse fracture of the distal right radius is noted. There may be slight im paction. The distal ulna is intact. The carpals are intact. There are some arthritic changes present in the visualized hand and wrist. CONCLUSION: Minimally displaced distal right radial fracture Electronically signed by: Ryan Brito MD 04/09/2018 6:35 AM EDT
[2018-04-09] MEDS: Methocarbamol 500 MG Tablet PO SCH ×3 (06:45→21:45)
[2018-04-09] MEDS: Senna/Docusate Sodium 8.6/50 MG Tablet PO SCH ×2 (08:44→21:46)
[2018-04-09] MEDS: oxyCODONE/Acetaminophen 10/325 Tablet PO PRN ×3 (08:45→18:41)
[2018-04-09] MEDS: Famotidine 20 MG Tablet PO SCH ×2 (08:45→21:46)
[2018-04-09] MEDS: Sodium Chloride 0.9% 2 ML Flush BID IV.FLUSH SCH ×2 (08:46→21:45)
[2018-04-09] MEDS: Enoxaparin Inj 30 MG/0.3 ML Syringe SQ SCH ×2 (08:46→21:47)
--- NOTE | 2018-04-09 17:43 | P.PN ---
Subjective Interval history: Patient reported right wrist pain yesterday when working with PT. X-ray reveals right radius fx Pain controlled Ambulated well with PT Physical Exam Vital signs: Vital Signs 04/08/18 20:00 04/08/18 20:58 04/09/18 00:35 Temperature 98.1 F 98.1 F Pulse Rate 78 66 Respiratory Rate 17 18 17 Blood Pressure 104/50 L 116/70 Pulse Oximetry 97 97 04/09/18 04:00 04/09/18 08:00 04/09/18 12:00 Temperature 98.1 F 98.3 F 97.7 F Pulse Rate 55 L 61 57 L Respiratory Rate 17 16 16 Blood Pressure 128/71 119/63 120/75 Pulse Oximetry 97 98 96 04/09/18 16:00 Temperature 97.7 F Pulse Rate 64 Respiratory Rate 16 Blood Pressure 128/73 Pulse Oximetry 97 Intake & Output 04/08/18 04/09/18 04/09/18 18:59 06:59 18:59 Intake Total 600 / 600 Output Total 450 / 450 300 / 300 Balance 150 / 150 -300 / -300 Intake: Oral 600 / 600 Output: Urine 450 / 450 300 / 300 Other: # Voids 6 Date of Last Bowel Movement 04/08/18 04/08/18 04/10/18 Narrative: GENERAL: 62-year-old well-nourished, well developed male sitting on the side of the bed. SKIN: Warm and dry. 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 CARDIOVASCULAR: Regular rate and rhythm. RESPIRATORY: No accessory muscle use. Lungs clear to auscultation bilaterally. GASTROINTESTINAL: Abdomen soft, non-tender, nondistended. + BS. MUSCULOSKELETAL: Extremities without cyanosis, or edema. MAEW, + perfused BUE and BLE 4/5 strength NEUROLOGICAL: Awake and alert. Normal speech. 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 Trauma transfer. INJURIES: Occipital scalp lac T3, T9 compression fxs L3 endplate compression fx LEFT rib fx (12) ?Aspiration LEFT 3rd and 4th digit dislocation RIGHT radius fx Occipital scalp lac Supportive care Wound care: Cleanse wound daily with soap and water. Leave open to air T3, T9 compression fxs, L3 endplate compression fx Neurosurgery consulted Non-op TLSO brace when OOB OOB- PT and OT ordered. PT increased to 7 days/wk Pain control Bowel regimen LEFT rib fx, ?Aspiration Supportive care Pulmonary toileting CXR shows mild atelectasis at right lung base Pain control Bowel regimen OOB PT and OT ordered LEFT 3rd and 4th digit dislocation 04/05: LEFT 3rd and 4th digit reduction (at outside facility) Negative for fracture Pain control RIGHT radius fx Orthopedics consulted Splint applied by pilot plant technician Await Ortho plan Assume NWB RUE Plan of care discussed with patient and RN at bedside. Collaborating Trauma surgeon agrees with plan. Case management consulted to assist with discharge planning.
[2018-04-10] MEDS: Ketorolac Inj 30 MG/ML (IVP) Vial IV.PUSH SCH ×3 (00:21→12:10)
[2018-04-10] MEDS: oxyCODONE/Acetaminophen 10/325 Tablet PO PRN ×4 (04:59→15:06)
--- NOTE | 2018-04-10 07:12 | P.CONOP ---
[facility] Orthopedics Consult Note - [facility] Consult date: 04/10/18 Requesting physician: Dana Whitlock Consult reason: fracture Chief complaint: 10 Foot Fall, Mult T-Spine and L-Spine Fractures Narrative: This 62-year-old male was admitted 5 days ago after a fall of approximately 10 feet. The patient was noted to have dislocated fingers which were reduced at that time as well as compression fractures involving T3 and T9. With progressive therapy he was complaining of right wrist pain. An x-ray was completed which revealed a nondisplaced distal radius fracture and orthopedic consultation was requested. Review of Systems Reviewed and well documented in the medical record PMFSH - History History Provided By: Patient - Medical History Medical History: Medical History (Last Reviewed 04/08/18 @ 10:46 by Pascale Lujan) MDRO (multiple drug resistant organisms) resistance Onset Date: ~04/06/18 Patient denies medical problems - Surgical History Surgical History: Surgical History (Last Reviewed 04/08/18 @ 10:46 by Pascale Lujan) H/O exploratory laparotomy - Social History I have reviewed the patient's Social History: Yes - Tobacco History Second Hand Smoke Exposure: No Smoking Status: Never smoker - Alcohol History How Often Do You Have a Drink Containing Alcohol: Monthly or less - Substance Use History Substance History: No History of Abuse - Travel History Recent Travel in the [place] Within the Last 8 Weeks: No Recent Travel Out of the Country Within the Last 8 Weeks: No - Immunization History Tetanus Immunization: <5 Years Medications and Allergies Active Medications: Active Medications Acetaminophen (Tylenol Liq) 650 mg PO Q4H PRN PRN Reason: FEVER > 101 F Albuterol (Duoneb Neb (Prn)) 1 ampul NEB Q2HR NEB PRN PRN Reason: SHORTNESS OF BREATH Bacitracin (Baciguent Oint) 1 applicatio TOPICAL BID [facility] Last Admin: 04/09/18 21:45 Dose: 1 applicatio Enalaprilat (Vasotec Inj) 1.25 mg IV.PUSH Q6H PRN PRN Reason: SBP>180, DBP>95 Enoxaparin Sodium (Lovenox Inj) 30 mg SQ Q12HR [facility] Last Admin: 04/09/18 21:47 Dose: 30 mg Famotidine (Pepcid) 20 mg PO BID [facility] Last Admin: 11/03/18 21:46 Dose: 20 mg Fentanyl (Duragesic 50 Mcg Patch.72hr) 1 patch T-DERMAL Q3D [facility] Last Admin: 04/08/18 09:58 Dose: 1 patch Ketorolac Tromethamine (Toradol Inj) 15 mg IV.PUSH Q6H [facility] Stop: 04/11/18 12:29 Last Admin: 04/10/18 00:21 Dose: 15 mg Lactulose (Lactulose Liq) 30 ml PO DAILY PRN PRN Reason: CONSTIPATION Methocarbamol (Robaxin) 750 mg PO Q8HR [facility] Last Admin: 04/09/18 21:45 Dose: 750 mg Ondansetron HCl (Zofran Inj) 4 mg IV.PUSH Q6H PRN PRN Reason: NAUSEA OR VOMITING Oxycodone/Acetaminophen (Percocet 10/325 Mg) 1 tab PO Q3H PRN PRN Reason: Pain > 3 Last Admin: 04/10/18 04:59 Dose: 1 tab Patch Removal (Remove Old Patch) 1 each T-DERMAL Q3D [facility] Senna/Docusate Sodium (Rayna-Colace) 1 tab PO BID [facility] Last Admin: 04/09/18 21:46 Dose: 1 tab Sodium Chloride (Ns Flush) 2 ml IV.FLUSH BID [facility] Last Admin: 04/09/18 21:45 Dose: 2 ml Sodium Chloride (Ns Flush) 2 ml IV.FLUSH PRN PRN PRN Reason: FLUSH AFTER USING IV ACCESS Allergies Allergy/AdvReac Type Severity Reaction Status Date / Time No Known Allergies Allergy Verified 04/05/18 19:27 Home Medications Medication Instructions Recorded Confirmed Type No Known Home Medications 04/05/18 04/05/18 History Exam Vital signs: Vital Signs 04/09/18 12:00 04/09/18 16:00 04/09/18 20:15 Temperature 97.7 F 97.7 F Pulse Rate 57 L 64 Respiratory Rate 16 16 16 Blood Pressure 120/75 128/73 Pulse Oximetry 96 97 04/09/18 20:22 04/09/18 23:49 04/10/18 01:08 EDT Temperature 98.2 F 98.1 F Pulse Rate 62 62 Respiratory Rate 18 16 16 Blood Pressure 141/80 H 124/63 Pulse Oximetry 98 98 Intake & Output 04/09/18 04/10/18 04/10/18 19:59 06:59 18:59 Other: # Voids 1 Date of Last Bowel Movement Narrative: The right upper extremity is in a Velcro wrist splint. There is palpable tenderness of the distal radius. There is minimal swelling. He has restricted mobility of the wrist secondary to pain. He has full mobility of the MCP and IP joints. He has good capillary refill and sensation. Results - Labs Result Diagrams: 04/07/18 04:11 04/07/18 04:11 - Diagnostic results Wrist/Hand x-ray: image reviewed Assessment and Plan - Problem List (1) Distal radius fracture, right Code(s): S52.501A - Unspecified fracture of the lower end of right radius, initial encounter for closed fracture Status: Acute (2) Dislocation closed, finger Code(s): S63.259A - Unspecified dislocation of unspecified finger, initial encounter Status: Acute Qualifiers: Encounter type: initial encounter Qualified Code(s): S63.259A - Unspecified dislocation of unspecified finger, initial encounter (3) Thoracic spine fracture Code(s): S22.009A - Unspecified fracture of unspecified thoracic vertebra, initial encounter for closed fracture Status: Acute - Assessment and Plan The findings were discussed. The patient is a stable fracture configuration amenable to use of a Velcro wrist support. He was encouraged and activity modification and no lifting but to progress range of motion exercises of the fingers. It is recommended he follow-up with the undersigned in approximately 3 weeks for reevaluation with x-ray. The patient acknowledges full understanding of the plan of treatment and agrees to it. He can be discharged from an orthopedic standpoint.
[2018-04-10] MEDS: Methocarbamol 500 MG Tablet PO SCH ×2 (07:51→14:27)
[2018-04-10] MEDS: Enoxaparin Inj 30 MG/0.3 ML Syringe SQ SCH (08:59)
[2018-04-10] MEDS: Famotidine 20 MG Tablet PO SCH (08:59)
[2018-04-10] MEDS: Senna/Docusate Sodium 8.6/50 MG Tablet PO SCH (08:59)
[2018-04-10] MEDS: Sodium Chloride 0.9% 2 ML Flush BID IV.FLUSH SCH (09:17)
--- NOTE | 2018-04-10 16:59 | P.DS ---
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 Trauma transfer. INJURIES: Occipital scalp lac T3, T9 compression fxs L3 endplate compression fx LEFT rib fx (12) ?Aspiration LEFT 3rd and 4th digit dislocation RIGHT radius fx Occipital scalp lac Supportive care Wound care: Cleanse wound daily with soap and water. Leave open to air T3, T9 compression fxs, L3 endplate compression fx Neurosurgery consulted, F/U outpatient Non-op TLSO brace when OOB OOB- PT and OT ordered. PT increased to 7 days/wk Pain control Bowel regimen LEFT rib fx, ?Aspiration Supportive care Pulmonary toileting CXR shows mild atelectasis at right lung base Pain control Bowel regimen OOB PT and OT ordered LEFT 3rd and 4th digit dislocation 04/05: LEFT 3rd and 4th digit reduction (at outside facility) Negative for fracture Pain control RIGHT radius fx Orthopedics consulted, F/U outpatient Non-op NWB RUE Pain control Maintain splint F/U with PCP in 1 week Plan of care discussed with patient and RN at bedside. Collaborating Trauma surgeon agrees with plan. Case management consulted to assist with discharge planning. PAtient is clear from trauma surgery standpoint to safely DC home. - Time Spent with Patient Total time spent providing and/or coordinating discharge services: Greater than 30 minutes - Quality: VTE Deep Vein Thrombosis/Pulmonary Embolism Present on Admission: No Exam Vital signs: Vital Signs 04/09/18 20:15 04/09/18 20:22 04/09/18 23:49 Temperature 98.2 F 98.1 F Pulse Rate 62 62 Respiratory Rate 16 18 16 Blood Pressure 141/80 H 124/63 Pulse Oximetry 98 98 04/10/18 01:08 EDT Temperature Pulse Rate Respiratory Rate 16 Blood Pressure Pulse Oximetry Intake & Output 11/03/18 11/04/18 11/04/18 19:59 06:59 18:59 Other: # Voids 1 Date of Last Bowel Movement 04/10/18 Narrative: GENERAL: 62-year-old well-nourished, well developed male sitting up in bed. SKIN: Warm and dry. CARDIOVASCULAR: Regular rate and rhythm. RESPIRATORY: No accessory muscle use. Lungs clear to auscultation bilaterally. GASTROINTESTINAL: Abdomen soft, non-tender, nondistended. + BS. MUSCULOSKELETAL: Extremities without cyanosis, or edema. RUE soft splint in place. MAEW, + perfused BUE and BLE 4/5 strength NEUROLOGICAL: Awake and alert. Normal speech. Results Procedures completed during hospitalization: . - Impressions ITS Impressions Abdomen/Pelvis CT 04/05/18 19:55 CONCLUSION: 1. Negative for acute traumatic injury within the abdomen and pelvis. Chest CT 04/05/18 19:55 CONCLUSION: 1. Negative for acute traumatic injury within the thorax. No effusion, pneumothorax or mediastinal hematoma. Dependent atelectasis in the lungs. Lumbar Spine CT 04/06/18 03:16 CONCLUSION: 1. Very mild and focal superior endplate compression fracture of L3, age indeterminate. Otherwise intact lumbar spine. No acute stenosis demonstrated. 2. Multilevel degenerative changes as above. 3. Variant anatomy of the spine. There are 13 thoracic vertebra and partially sacralized L5. Thoracic Spine CT 04/06/18 03:16 CONCLUSION: 1. Mild acute appearing T3 and T9 compression fractures without associated foraminal or spinal stenosis. 2. Mild, nonacute appearing compression deformity of T7. 3. Acute fracture posteriorly of the left 12th rib. 4. No subluxations. Lumbar Spine MRI 04/06/18 10:05 CONCLUSION: 1. Subtle increased signal in the L3 vertebral body vertebral body and probably represents a subtle compression. 2. Minimal annular tear at L2-3. Thoracic Spine MRI 04/06/18 10:05 CONCLUSION: 1. Subtle acute compressions of T3 and T9 without cord impingement. 2. Old compression of T7. Chest X-Ray 04/07/18 00:00 CONCLUSION: Mild right base atelectasis. Lungs otherwise clear. Wrist X-Ray 04/09/18 00:00 CONCLUSION: Minimally displaced distal right radial fracture Discharge Plan - Discharge Disposition Patient Disposition: 01 Discharge Home - Discharge Condition Condition: Stable - Discharge Order Discharge Orders: Discharge Order (Routine); Ordered 04/10/18 Ordered By: Fede Quinones Orthopedic Clear for Discharge (Routine); Ordered 04/10/18 Ordered By: Kristofer Lyons - Physicians Team Primary Care Provider: UNKNOWN, Attending Provider: Dana Whitlock Other Providers: Gordon Riley MD ; Boby Marin MD ; Ethan Hodges MD ; Arslan Paulino MD ; [employer] ; Yon Melchor MD ; Candace Pedraza ARNP ; Harry Mcclain MD ; Dana Whitlock MD ; Fede Quinones ARNP ; Daniel Burns MD ; Elizabeth Diaz MD ; Kristofer Lyons MD
== END 2018-04-10 16:32 | disposition home or self-care (01) ==
LOC: NEPC 18:57 → NEDA 20:59 → NEPFCDU 04-06 00:04 → N07 04-10 08:39
PROVIDERS: ADMIT Surgery Trauma Surgery; ATTEND Surgery Trauma Surgery